=== PATIENT | male | born 1970 | race Caucasian/White ===

== ENCOUNTER 2016-07-26 11:03 | Emergency (ER) | payer OTHER ==
[2016-07-26 11:03] LABS: BASOPHIL# 0.1 X10e3 (0-0.3); BASOPHIL% 0.8 % (0-2.5); EOSINOPHIL# 0.5 X10e3 (0-0.7); HEMATOCRIT 49.1 % (38.0-50.0); HEMOGLOBIN 16.1 gm/dL (13.0-16.0); LYMPHOCYTE# 2.5 X10e3 (1.0-3.5); LYMPHOCYTE% 28.7 % (17.0-45.0); MEAN CELL VOLUME 91.7 FL (83-96); MEAN CORPUSCULAR HGB CONC 32.7 g/dL (30-36); MEAN PLATELET VOLUME 9.1 FL (6.5-11.5); MONOCYTE# 0.6 X10e3 (0-1.0); MONOCYTE% 7.3 % (3.0-12.0); NEUTROPHIL% 57.2 % (40-75); PLATELET COUNT 259 X10e3 (140-420); RED BLOOD COUNT 5.35 X10e (3.90-5.60); RED CELL DISTRIBUTION WIDTH 13.8 % (11.0-15.5); WHITE BLOOD COUNT 8.7 X10e3 (4.0-10.5)
[~2016-07-26 11:03] MED LIST: KETOPROFEN PO; LORTAB 5/500 TA1 TA2 PO; PHENERGAN PR
[2016-07-26 11:16] LABS: DIFF IND NO
[2016-07-26 11:30] LABS: ALBUMIN SERUM 4.5 g/dL (3.5-5.0); BILIRUBIN, DIRECT 0.1 mg/dL (0.0-0.2); BILIRUBIN,INDIRECT 0.5 mg/dL (0.0-0.9); BILIRUBIN,TOTAL 0.6 mg/dL (0.2-2.0); BUN/CREATININE RATIO 17.77; CALCIUM SERUM 9.4 mg/dL (8.4-10.2); CREATININE SERUM 0.9 mg/dL (0.6-1.4); GLOM FILT RATE Estimated 102.8 mL/min (>60); POTASSIUM 4.2 mmol/L (3.5-5.1); PROTEIN TOTAL SERUM 7.9 g/dL (6.0-8.3)
[2016-07-26 12:04] LABS: URINE SOURCE CLEAN CATCH
[2016-07-26 12:08] LABS: URINE APPEARANCE CLEAR; URINE BILIRUBIN NEG (NEG); URINE BLOOD NEG (NEG); URINE COLOR YELLOW; URINE GLUCOSE NEG (NEG); URINE KETONE NEG (NEG); URINE LEUKOCYTE ESTERASE NEG (NEG); URINE NITRATE NEG (NEG); URINE PH 7.5 (5-8); URINE PROTEIN NEG (NEG); URINE SPECIFIC GRAVITY 1.023 (1.003-1.035)
[2016-07-26 12:15] LABS: CULTURE INDICATED? NO
== END 2016-07-26 12:49 | disposition home or self-care (01) ==
LOC: CED 11:03
PROVIDERS: Nurse Practitioner Family
DX: R10.2 Pelvic and perineal pain (principal); F17.210 Nicotine dependence, cigarettes, uncomplicated; Z87.442 Personal history of urinary calculi
CPT/HCPCS: 36415; 80048; 80076; 81003; 82150; 83690; 85025; 99284